=== PATIENT | male | born 1955 | race Caucasian/White ===

== ENCOUNTER 2016-09-06 13:29 | Inpatient (IN) | payer OTHER ==
[~2016-09-06] VITALS: Ht 167.6 cm; Wt 59.0 kg
[2016-09-06 13:42] VITALS: BP 141/76
[2016-09-06 13:46] LABS: ARTERIAL ABE -5.2 MMOL/L (-2.4-+2.3); ARTERIAL TCO2 23.8 MMOL/L (23-27)
[2016-09-06 13:47] LABS: ALLEN'S TEST PATIENT UNABLE; OXYGEN 35% V-MASK
--- NOTE | 2016-09-06 13:49 | Emergency Room Report ---
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 N Clinical Suspician of Infection? N Mental Status: 1 - Regular (Normal Baseline) Sepsis Risk:Low Sepsis Risk Have you (or family members/close friends) recently traveled outside the [place]? N If Yes, where/when: Have you had exposure to infectious disease within the past month? N TB? Other? Specify: Source patient, RN notes reviewed, RN/MD Exam Limitations no limitations Comment This is a 61-year-old gentleman in by ambulance for evaluation of productive cough, subjective fever and shortness of breath, for the past 3 days. Patient describes his cough as productive, yellowish-greenish, denies any hemoptysis, denies any chest pain, any recent travel or exposure to sick contacts. He has a history of chronic obstructive pulmonary disease, his oxygen dependent on 2 LPM, at home. He said he had to increase his oxygen from 2-3 L/m. [facility], and will like to be transferred to his scrum master, Dr. Daniels, at [facility]. He is refusing to be sent to [facility], in case he needs to be transferred. ALLERGIES Coded Allergies: No Known Allergies (09/06/16) Home Medications Reported Medications Albuterol (Albuterol-Hfa Inhaler) 2 PUFF IH TID ALBUTEROL (Albuterol 0.083% Neb) 2.5 MG INH Q6 ASPIRIN (Aspirin) 81 MG PO DAILY ATENOLOL (Atenolol 50MG) 50 MG PO DAILY Budesonide (Pulmicort) 0.25 MG IH BID CETIRIZINE HCL (Cetirizine 10MG) 10 MG PO DAILY Etanercept (Enbrel) 50 MG SQ Q 2 WEEKS Guaifenesin (Chest Congestion Relief) 400 MG PO Q6 IBUPROFEN MICRONIZED (IBUPROFEN 600MG) 600 MG PO Q8HP PRN PAIN LACTOSE-REDUCED FOOD (Ensure Liquid) 250 ML PO BID Omeprazole (Omeprazole 20MG) 20 MG PO DAILY Simvastatin 80 MG PO DAILY Tiotropium [place] (Tiotropium [place] 18MCG/Cap Handihaler) 18 MCG IH DAILY Alendronate Sodium 70 MG PO WEEKLY Sulfasalazine (Azulfidine 500MG Tab) 500 MG PO Calcium Carbonate 500 GM MC History Medical History General Hypertension? Yes Immunization Hx DT/Tetanus Unknown Surgical Hx Previous Surgery?Y Coronary Artery Bypass Social History Smoking Hx Smoker: Former Smoker Tobacco: Yes Type Cigarettes Alcohol Alcohol: No Review of Systems All Other Systems Reviewed and Negative Constitutional chills, diaphoresis, fever, malaise Respiratory cough, shortness of breath, wheezing Physical Exam Vital Signs Vital Signs Date Time Temp Pulse Resp B/P Pulse O2 O2 Flow FiO2 Ox Delivery Rate 09/06 1659 98.2 106 20 150/94 90 4 09/06 1538 106 20 150/94 90 4 09/06 1500 114 20 148/84 97 4 09/06 1437 97 09/06 1342 98.2 110 18 141/76 95 4 General Appearance normal appearance, WD/WN, mild distress Neck normal inspection, non-tender, supple, full range of motion Respiratory Status Yes: trachea midline, chest symmetrical, non tender chest. No: respiratory distress. Lung Sounds anterior: wheezing. posterior: wheezing. bilateral: wheezing. left: wheezing. right: wheezing. 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 No Comment 15:05-patient reevaluated, he appears to remain in distress, with audible wheezing in inspiration and expiration as well. Results obtained, need for inpatient treatment, which in his case will require transfer to [place] [facility]. I advised the emergency cardiovascular operating room nurse to arrange for this transfer. 15:20-Yady Macdonald contacted May at the [facility] in [place], advised of the patient's condition and requested to transfer the patient to their facility, if available beds. May will check the bed availability and call us back. 16:10-May called back, advising that [facility] does not currently have any open inpatient beds. This medication was conveyed to the patient, and advised him that he could be transferred to [facility], which patient refused again. Further arrangements to be undertaken in order to admit patient at our facility, which patient is agreeable with. 16:30-case discussed with Dr. Ahmet Robles, covering for Dr. Johnson, unassigned. Advised Dr. Robles of patient's symptoms, presentation, vital signs, physical examination, lab/electrocardiogram/radiology findings, ED course, etc. Dr. Robles agreeable to place patient in the hospital. Plan is to continue the nebulizers, increase the oxygen supply, and cover him with IV antibiotics for the pneumonia. Care transferred to Dr. Robles at this time. I will write temporary bridge admission orders, per hospital policy. Upon patient's arrival to the floor the unit nurse/[address] Ovalle in order to obtain full inpatient admission orders. Results/Orders Laboratory Tests 09/06/16 1451: ABG pH 7.48 H, ABG pCO2 (Temp Corrct 25.3 L, ABG pO2 (Temp Correct 86.7, ABG HCO3 18.3 L, ABG Total CO2 19.1 L, ABG O2 Sat (Calculated) 96.8, ABG Base Excess -5.3 L, Brian Test ACCEPTABLE 09/06/16 1336: Lactic Acid 2.3 H 09/06/16 1336: Creatine Kinase 133, CK-MB (CK-2) Rel Index 3.3, CK and CKMB Interp 4.4 H, Troponin I < 0.02 09/06/16 1336: Amylase 48, Lipase 100 09/06/16 1336: Sodium 137, Potassium 4.4, Chloride 102, Carbon Dioxide 26, BUN 17, Creatinine 1.1, Estimated Creat Clear 67, Estimated GFR (MDRD) 68, Glucose 134 H, Calcium 8.9, Total Bilirubin 0.6, AST 19, ALT 26, Alkaline Phosphatase 99, Total Protein 7.6, Albumin 3.4, Globulin 4.2 H, Albumin/Globulin Ratio 0.8 L, WBC 14.5 H, RBC 5.70, Hgb 16.8, Hct 50.4, MCV 88.4, RDW 13.3, Plt Count 314, MPV 6.5 L, Gran % 85.6 H, Gran # 12.4 H, Total Counted 100, Lymphocytes % 8.8 L, Monocytes % 3.9, Eosinophils % 1.3, Basophils % 0.4, Neutrophils 75, Band Neutrophils 6, Lymphocytes (Manual) 15, Lymphocytes # 1.3, Monocytes (Manual) 3, Monocytes # 0.6, Eosinophils # 0.2, Eosinophils # (Manual) 1, Basophils # 0.1, Platelet Estimate NORMAL, PUBS MCHC 33.4, MCH 29.5 09/06/16 1320: ABG pH 7.24 *L, ABG pCO2 (Temp Corrct 52.6 H, ABG pO2 (Temp Correct 84.0, ABG HCO3 22.1, ABG Total CO2 23.8, ABG O2 Sat (Calculated) 94, ABG Base Excess -5.2 L, Brian Test PATIENT UNABLE, Blood Gas Comments LEFT RADIAL Current Medication Orders Sig/Leta Start time Last Medication Dose Route Stop Time Status Admin Azithromycin 500 MG DAILY 09/07 899 AC Sodium Chloride 250 ML IV Ceftriaxone Sodium 1 GM DAILY 09/07 0900 AC 09/07 Sodium Chloride 50 ML IV 0950 Methylprednisolone 60 MG Q12 09/06 2100 AC 09/07 Sodium Succinate IV 0941 Albuterol/Ipratropium 3 ML Q6H6 09/06 1800 AC 09/07 INH 1115 Ceftriaxone Sodium 0 .STK-MED ONE 09/06 1545 DC IV Hydrocodone Bit/ 5 MG ONCE ONE 09/06 1545 DC 09/06 Homatropine MBr PO 09/06 1546 1845 Sodium Chloride 50 ML .STK-MED ONE 09/06 1545 DC IV Azithromycin 500 MG ONCE ONE 09/06 1430 DC 09/06 Sodium Chloride 250 ML IV 09/06 1529 1844 Ceftriaxone Sodium 1 GM ONCE ONE 09/06 1430 DC 09/06 Sodium Chloride 50 ML IV 09/06 1459 1549 Albuterol/Ipratropium 3 ML ONCE ONE 09/06 1345 DC INH 09/06 1346 Methylprednisolone 125 MG ONCE ONE 09/06 1345 DC 04 Sodium Succinate IV 09/06 1346 1353 Sodium Chloride 10 ML PRN PRN 09/06 1345 AC IV 09/07 1336 Methylprednisolone 0 .STK-MED ONE 09/06 1341 DC Sodium Succinate .ROUTE Orders Procedure Date/time Status [id number] FAT/LO CHO/[place] 09/06 D Active Decision to admit 09/06 1528 Active LACTIC ACID FOLLOW UP 09/06 1426 Complete CARDIAC ENZYMES 09/06 1422 Complete LIPASE 09/06 1338 Complete AMYLASE 09/06 1338 Complete RT REQUEST DUONEB 09/06 1337 Active CHEST-PORTABLE 09/06 1337 Active IV SALINE LOCK 09/06 1337 Active OXYGEN PER NURSE 09/06 1337 Active URINARY CATHETER INSERT 09/06 1337 Active CULTURE, BLOOD 09/06 1337 Active URINALYSIS/COMPLETE 09/06 1337 Active LACTIC ACID 09/06 1337 Complete CBC WITH AUTO DIFF 09/06 1337 Complete CHEM 12 PROFILE 09/06 1337 Complete DIFFERENTIAL-WBC 09/06 1336 Complete ADMIT PATIENT 09/06 UNK Active PULSE OXIMETRY REQUEST 09/06 UNK Active OXYGEN REQUEST 09/06 UNK Active RT REQUEST DUONEB 09/06 UNK Active VITAL SIGNS 09/06 UNK Active BANKER MASON 09/06 UNK Active POM NURSE RAMON HOSE ORDER 09/06 UNK Active CODE STATUS 09/06 UNK Active PATIENT ACTIVITY ORDER 09/06 UNK Active 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 of ischemic chgs, no ectopy, normal QRS, no EKG for comparison, non-spec. ST/Twave chgs, ST elevation, ST depression, LBBB, RBBB, ectopy, abnormal Q waves XRAY/CT/US XRAY/CT/US XRAY chest XR interpretation by discussed w/radiologist Xray Results normal heart size, no hematoma seen, RLL infiltrate, per radiologist Departure Departure Time of Disposition 1430 Disposition Still a Patient Clinical Impression Primary Impression: COPD exacerbation Secondary Impressions: RLL pneumonia Qualifiers: Pneumonia type: due to unspecified organism Qualified Code: J18.1 - Lobar pneumonia, unspecified organism Condition STABLE ED Critical Care Critical Care No at 1202
--- NOTE | 2016-09-06 13:49 | Emergency Room Report ---
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 N Clinical Suspician of Infection? N Mental Status: 1 - Regular (Normal Baseline) Sepsis Risk:Low Sepsis Risk Have you (or family members/close friends) recently traveled outside the [place]? N If Yes, where/when: Have you had exposure to infectious disease within the past month? N TB? Other? Specify: Source patient, RN notes reviewed, RN/MD Exam Limitations no limitations Comment This is a 61-year-old gentleman in by ambulance for evaluation of productive cough, subjective fever and shortness of breath, for the past 3 days. Patient describes his cough as productive, yellowish-greenish, denies any hemoptysis, denies any chest pain, any recent travel or exposure to sick contacts. He has a history of chronic obstructive pulmonary disease, his oxygen dependent on 2 LPM, at home. He said he had to increase his oxygen from 2-3 L/m. [facility] is [facility], and will like to be transferred to his patient financial services specialist, Dr. Daniels, at [facility]. He is refusing to be sent to [facility], in case he needs to be transferred. ALLERGIES Coded Allergies: No Known Allergies (09/06/16) Home Medications Reported Medications Albuterol (Albuterol-Hfa Inhaler) 2 PUFF IH TID ALBUTEROL (Albuterol 0.083% Neb) 2.5 MG INH Q6 ASPIRIN (Aspirin) 81 MG PO DAILY ATENOLOL (Atenolol 50MG) 50 MG PO DAILY Budesonide (Pulmicort) 0.25 MG IH BID CETIRIZINE HCL (Cetirizine 10MG) 10 MG PO DAILY Etanercept (Enbrel) 50 MG SQ Q 2 WEEKS Guaifenesin (Chest Congestion Relief) 400 MG PO Q6 IBUPROFEN MICRONIZED (IBUPROFEN 600MG) 600 MG PO Q8HP PRN PAIN LACTOSE-REDUCED FOOD (Ensure Liquid) 250 ML PO BID Omeprazole (Omeprazole 20MG) 20 MG PO DAILY Simvastatin 80 MG PO DAILY Tiotropium [place] (Tiotropium [place] 18MCG/Cap Handihaler) 18 MCG IH DAILY Alendronate Sodium 70 MG PO WEEKLY Sulfasalazine (Azulfidine 500MG Tab) 500 MG PO Calcium Carbonate 500 GM MC History Medical History General Hypertension? Yes Immunization Hx DT/Tetanus Unknown Surgical Hx Previous Surgery?Y Coronary Artery Bypass Social History Smoking Hx Smoker: Former Smoker Tobacco: Yes Type Cigarettes Alcohol Alcohol: No Review of Systems All Other Systems Reviewed and Negative Constitutional chills, diaphoresis, fever, malaise Respiratory cough, shortness of breath, wheezing Physical Exam Vital Signs Vital Signs Date Time Temp Pulse Resp B/P Pulse O2 O2 Flow FiO2 Ox Delivery Rate 09/06 1659 98.2 106 20 150/94 90 4 09/06 1538 106 20 150/94 90 4 09/06 1500 114 20 148/84 97 4 09/06 1437 97 09/06 1342 98.2 110 18 141/76 95 4 General Appearance normal appearance, WD/WN, mild distress Neck normal inspection, non-tender, supple, full range of motion Respiratory Status Yes: trachea midline, chest symmetrical, non tender chest. No: respiratory distress. Lung Sounds anterior: wheezing. posterior: wheezing. bilateral: wheezing. left: wheezing. right: wheezing. 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 No Comment 15:05-patient reevaluated, he appears to remain in distress, with audible wheezing in inspiration and expiration as well. Results obtained, need for inpatient treatment, which in his case will require transfer to [place] [facility]. I advised the emergency room cooler installer to arrange for this transfer. 15:20-Yady Macdonald contacted May at the [facility] in [place], advised of the patient's condition and requested to transfer the patient to their facility, if available beds. May will check the bed availability and call us back. 16:10-May called back, advising that [facility] does not currently have any open inpatient beds. This medication was conveyed to the patient, and advised him that he could be transferred to [facility], which patient refused again. Further arrangements to be undertaken in order to admit patient at our facility, which patient is agreeable with. 16:30-case discussed with Dr. Ahmet Robles, covering for Dr. Johnson, unassigned. Advised Dr. Robles of patient's symptoms, presentation, vital signs, physical examination, lab/electrocardiogram/radiology findings, ED course, etc. Dr. Robles agreeable to place patient in the hospital. Plan is to continue the nebulizers, increase the oxygen supply, and cover him with IV antibiotics for the pneumonia. Care transferred to Dr. Robles at this time. I will write temporary bridge admission orders, per hospital policy. Upon patient's arrival to the floor the unit nurse/[address] Ovalle in order to obtain full inpatient admission orders. Results/Orders Laboratory Tests 09/06/16 1451: ABG pH 7.48 H, ABG pCO2 (Temp Corrct 25.3 L, ABG pO2 (Temp Correct 86.7, ABG HCO3 18.3 L, ABG Total CO2 19.1 L, ABG O2 Sat (Calculated) 96.8, ABG Base Excess -5.3 L, Brian Test ACCEPTABLE 09/06/16 1336: Lactic Acid 2.3 H 09/06/16 1336: Creatine Kinase 133, CK-MB (CK-2) Rel Index 3.3, CK and CKMB Interp 4.4 H, Troponin I < 0.02 09/06/16 1336: Amylase 48, Lipase 100 09/06/16 1336: Sodium 137, Potassium 4.4, Chloride 102, Carbon Dioxide 26, BUN 17, Creatinine 1.1, Estimated Creat Clear 67, Estimated GFR (MDRD) 68, Glucose 134 H, Calcium 8.9, Total Bilirubin 0.6, AST 19, ALT 26, Alkaline Phosphatase 99, Total Protein 7.6, Albumin 3.4, Globulin 4.2 H, Albumin/Globulin Ratio 0.8 L, WBC 14.5 H, RBC 5.70, Hgb 16.8, Hct 50.4, MCV 88.4, RDW 13.3, Plt Count 314, MPV 6.5 L, Gran % 85.6 H, Gran # 12.4 H, Total Counted 100, Lymphocytes % 8.8 L, Monocytes % 3.9, Eosinophils % 1.3, Basophils % 0.4, Neutrophils 75, Band Neutrophils 6, Lymphocytes (Manual) 15, Lymphocytes # 1.3, Monocytes (Manual) 3, Monocytes # 0.6, Eosinophils # 0.2, Eosinophils # (Manual) 1, Basophils # 0.1, Platelet Estimate NORMAL, PUBS MCHC 33.4, MCH 29.5 09/06/16 1320: ABG pH 7.24 *L, ABG pCO2 (Temp Corrct 52.6 H, ABG pO2 (Temp Correct 84.0, ABG HCO3 22.1, ABG Total CO2 23.8, ABG O2 Sat (Calculated) 94, ABG Base Excess -5.2 L, Brian Test PATIENT UNABLE, Blood Gas Comments LEFT RADIAL Current Medication Orders Sig/Leta Start time Last Medication Dose Route Stop Time Status Admin Azithromycin 500 MG DAILY 09/07 899 AC Sodium Chloride 250 ML IV Ceftriaxone Sodium 1 GM DAILY 09/07 0900 AC 09/07 Sodium Chloride 50 ML IV 0950 Methylprednisolone 60 MG Q12 09/06 2100 AC 09/07 Sodium Succinate IV 0941 Albuterol/Ipratropium 3 ML Q6H6 09/06 1800 AC 09/07 INH 1115 Ceftriaxone Sodium 0 .STK-MED ONE 09/06 1545 DC IV Hydrocodone Bit/ 5 MG ONCE ONE 09/06 1545 DC 09/06 Homatropine MBr PO 09/06 1546 1845 Sodium Chloride 50 ML .STK-MED ONE 09/06 1545 DC IV Azithromycin 500 MG ONCE ONE 09/06 1430 DC 09/06 Sodium Chloride 250 ML IV 09/06 1529 1844 Ceftriaxone Sodium 1 GM ONCE ONE 09/06 1430 DC 09/06 Sodium Chloride 50 ML IV 09/06 1459 1549 Albuterol/Ipratropium 3 ML ONCE ONE 09/06 1345 DC INH 09/06 1346 Methylprednisolone 125 MG ONCE ONE 09/06 1345 DC 04 Sodium Succinate IV 09/06 1346 1353 Sodium Chloride 10 ML PRN PRN 09/06 1345 AC IV 09/07 1336 Methylprednisolone 0 .STK-MED ONE 09/06 1341 DC Sodium Succinate .ROUTE Orders Procedure Date/time Status [id number] FAT/LO CHO/[place] 09/06 D Active Decision to admit 09/06 1528 Active LACTIC ACID FOLLOW UP 09/06 1426 Complete CARDIAC ENZYMES 09/06 1422 Complete LIPASE 09/06 1338 Complete AMYLASE 09/06 1338 Complete RT REQUEST DUONEB 09/06 1337 Active CHEST-PORTABLE 09/06 1337 Active IV SALINE LOCK 09/06 1337 Active OXYGEN PER NURSE 09/06 1337 Active URINARY CATHETER INSERT 09/06 1337 Active CULTURE, BLOOD 09/06 1337 Active URINALYSIS/COMPLETE 09/06 1337 Active LACTIC ACID 09/06 1337 Complete CBC WITH AUTO DIFF 09/06 1337 Complete CHEM 12 PROFILE 09/06 1337 Complete DIFFERENTIAL-WBC 09/06 1336 Complete ADMIT PATIENT 09/06 UNK Active PULSE OXIMETRY REQUEST 09/06 UNK Active OXYGEN REQUEST 09/06 UNK Active RT REQUEST DUONEB 09/06 UNK Active VITAL SIGNS 09/06 UNK Active MIDDLEWARE ADMINISTRATOR 09/06 UNK Active POM NURSE RAMON HOSE ORDER 09/06 UNK Active CODE STATUS 09/06 UNK Active PATIENT ACTIVITY ORDER 09/06 UNK Active 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 of ischemic chgs, no ectopy, normal QRS, no EKG for comparison, non-spec. ST/Twave chgs, ST elevation, ST depression, LBBB, RBBB, ectopy, abnormal Q waves XRAY/CT/US XRAY/CT/US XRAY chest XR interpretation by discussed w/radiologist Xray Results normal heart size, no hematoma seen, RLL infiltrate, per radiologist Departure Departure Time of Disposition 1430 Disposition Still a Patient Clinical Impression Primary Impression: COPD exacerbation Secondary Impressions: RLL pneumonia Qualifiers: Pneumonia type: due to unspecified organism Qualified Code: J18.1 - Lobar pneumonia, unspecified organism Condition STABLE ED Critical Care Critical Care No at 1202
[2016-09-06 13:50] LABS: HEMOGLOBIN 16.8 g/dL (14.1-18.0); LYMPH # 1.3 K/mm3 (0.7-4.5); LYMPH % 8.8 % (10-50)
[2016-09-06 14:11] LABS: NEUTROPHILS 75 % (42-76)
[2016-09-06] MEDS ORDERED: ALBUTEROL-200 PUFFS/ IH (14:22)
[2016-09-06] MEDS ORDERED: ASPIRIN 81MG TA81 MG PO (14:24)
[2016-09-06] MEDS ORDERED: ALBUTEROL2.5 MG/NEB INH (14:24)
[2016-09-06] MEDS ORDERED: ATENOLOL50 MG PO (14:25)
[2016-09-06] MEDS ORDERED: BUDESONIDE0.25 MG/2 IH (14:26)
[2016-09-06] MEDS ORDERED: CETIRIZINE HCL10 MG PO ×2 (14:26→20:54)
[2016-09-06] MEDS ORDERED: ENBREL50 MG/1 ML SQ (14:29)
[2016-09-06] MEDS ORDERED: CHEST CONGESTI400 MG PO (14:31)
[2016-09-06] MEDS ORDERED: IBUPROFEN 600M600 MG PO (14:31)
[2016-09-06] MEDS ORDERED: [UNRECOGNIZED DRUG - OTHER] PO (14:32)
[2016-09-06] MEDS ORDERED: OMEPRAZOLE20 MG PO (14:33)
[2016-09-06] MEDS ORDERED: SIMVASTATIN80 MG PO (14:33)
[2016-09-06] MEDS ORDERED: [UNRECOGNIZED DRUG - REMARK] PO (14:35)
[2016-09-06] MEDS ORDERED: TIOTROPIUM BRO18 MCG IH (14:36)
[2016-09-06 14:56] LABS: ARTERIAL PO2 86.7 MMHG (80-100)
[2016-09-06 14:57] LABS: ALLEN'S TEST ACCEPTABLE; ARTERIAL ABE -5.3 MMOL/L (-2.4-+2.3); ARTERIAL TCO2 19.1 MMOL/L (23-27)
--- NOTE | 2016-09-06 16:03 | PHARMACY CLINIC NOTE ---
Patient Demographics Patient Demographics Admission date: 09/06/16 Date: 09/06/16 Time: 1603 Allergies Coded Allergies: No Known Allergies (09/06/16) HEIGHT- FT: 5 IN: 6.00 K.400 VTE General Information Labs: Laboratory Tests 09/06 1336 Hematology Hgb (14.1 - 18.0 g/dL) 16.8 Hct (42.0 - 52.0 %) 50.4 Plt Count (142 - 424 K/mm3) 314 Disclaimer The following section includes nursing documentation that has been pulled in for pharmacy review. VTE prophylaxis [id number] [id number] VTE prophylaxis ordered? Yes Type of prophylaxis/treatment: RAMON at 1609
[2016-09-06 18:50] VITALS: BP 147/101
[2016-09-06] MEDS ORDERED: ALENDRONATE SOD70 M1 PO (20:53)
[2016-09-06] MEDS ORDERED: AZULFIDINE 500500 MG PO (20:58)
[2016-09-06 20:59] VITALS: BP 147/101
[2016-09-06] MEDS ORDERED: CALCIUM CARBONAT1 GM MC (21:00)
[2016-09-07] VITALS (9 sets, daily range): BP systolic 109–154; BP diastolic 68–97
--- NOTE | 2016-09-07 09:20 | HISTORY AND PHYSICAL REPORT ---
Demographics: Admit date: 09/06/16 Chief complaint: sob PRIMARY DIAGNOSIS: PNEUMONIA Allergies: Coded Allergies: No Known Allergies (09/06/16) History of present illness: History of present illness: this wm who has known copd with prod cough and dec po intake with sob and was seen in the ed with dec sat and abn cxr - pt was seen in the ed and was dx with cap and copd and [facility] and was admitted to [facility]- Past medical history: Family HX Family Hx Insignificant Yes Immunization HX DT/Tetanus Unknown Pneumonia Unknown TB Test in last year No General Hypertension? Yes Past Surgical HX Previous Surgery?Y Coronary Artery Bypass Current home meds: Reported Medications Albuterol (Albuterol-Hfa Inhaler) 2 PUFF IH TID ALBUTEROL (Albuterol 0.083% Neb) 2.5 MG INH Q6 ASPIRIN (Aspirin) 81 MG PO DAILY ATENOLOL (Atenolol 50MG) 50 MG PO DAILY Budesonide (Pulmicort) 0.25 MG IH BID CETIRIZINE HCL (Cetirizine 10MG) 10 MG PO DAILY Etanercept (Enbrel) 50 MG SQ Q 2 WEEKS Guaifenesin (Chest Congestion Relief) 400 MG PO Q6 IBUPROFEN MICRONIZED (IBUPROFEN 600MG) 600 MG PO Q8HP PRN PAIN LACTOSE-REDUCED FOOD (Ensure Liquid) 250 ML PO BID Omeprazole (Omeprazole 20MG) 20 MG PO DAILY Simvastatin 80 MG PO DAILY Sulfasalazine (Azulfidine) 500 MG PO BID Tiotropium Cecil (Tiotropium Cecil 18MCG/Cap Handihaler) 18 MCG IH DAILY Alendronate Sodium 70 MG PO WEEKLY CETIRIZINE HCL (Cetirizine 10MG) 10 MG PO DAILY Sulfasalazine (Azulfidine 500MG Tab) 500 MG PO Calcium Carbonate 500 GM MC Social Hx: Smoking HX Tobacco Yes Type Cigarettes Alcohol Alcohol: No Hx of Drug Use Drug Use? No Patien't marital status is Patient's support system is good Review of systems: Constitutional see HPI, weakness. Eyes No: drainage. Ears, Nose, Mouth, Throat No ear discharge, No epistaxis, No throat pain Respiratory cough. No: shortness of breath, wheezing. Cardiovascular No chest pain, No palpitations, No syncope Gastrointestinal/Abdominal poor appetite, poor fluid intake Genitourinary No: dysuria, frequency, hesitancy. Musculoskeletal No: back pain, joint pain, neck pain. Skin No: rash. Neurological No: numbness, tingling, seizure disorder. Psychiatric Yes: no symptoms reported, anxious. Exam: Lab data for last 24 hours: Laboratory Tests 09/07/16 0835: Sodium 136, Potassium 4.3, Chloride 101, Carbon Dioxide 26, BUN 25 H, Creatinine 1.1, Estimated Creat Clear 67, Estimated GFR (MDRD) 68, Glucose 151 H, Calcium 8.6, Total Bilirubin 0.6, AST 17, ALT 24, Alkaline Phosphatase 81, Total Protein 6.7, Albumin 2.9 L, Globulin 3.8 H, Albumin/Globulin Ratio 0.8 L 09/06/16 1736: Lactic Acid 2.1 H 09/06/16 1451: ABG pH 7.48 H, ABG pCO2 (Temp Corrct 25.3 L, ABG pO2 (Temp Correct 86.7, ABG HCO3 18.3 L, ABG Total CO2 19.1 L, ABG O2 Sat (Calculated) 96.8, ABG Base Excess -5.3 L, Brian Test ACCEPTABLE 09/06/16 1336: Lactic Acid 2.3 H 09/06/16 1336: Creatine Kinase 133, CK-MB (CK-2) Rel Index 3.3, CK and CKMB Interp 4.4 H, Troponin I < 0.02 09/06/16 1336: Amylase 48, Lipase 100 09/06/16 1336: Sodium 137, Potassium 4.4, Chloride 102, Carbon Dioxide 26, BUN 17, Creatinine 1.1, Estimated Creat Clear 67, Estimated GFR (MDRD) 68, Glucose 134 H, Calcium 8.9, Total Bilirubin 0.6, AST 19, ALT 26, Alkaline Phosphatase 99, Total Protein 7.6, Albumin 3.4, Globulin 4.2 H, Albumin/Globulin Ratio 0.8 L, WBC 14.5 H, RBC 5.70, Hgb 16.8, Hct 50.4, MCV 88.4, RDW 13.3, Plt Count 314, MPV 6.5 L, Gran % 85.6 H, Gran # 12.4 H, Total Counted 100, Lymphocytes % 8.8 L, Monocytes % 3.9, Eosinophils % 1.3, Basophils % 0.4, Neutrophils 75, Band Neutrophils 6, Lymphocytes (Manual) 15, Lymphocytes # 1.3, Monocytes (Manual) 3, Monocytes # 0.6, Eosinophils # 0.2, Eosinophils # (Manual) 1, Basophils # 0.1, Platelet Estimate NORMAL, PUBS MCHC 33.4, MCH 29.5 09/06/16 1320: ABG pH 7.24 *L, ABG pCO2 (Temp Corrct 52.6 H, ABG pO2 (Temp Correct 84.0, ABG HCO3 22.1, ABG Total CO2 23.8, ABG O2 Sat (Calculated) 94, ABG Base Excess -5.2 L, Brian Test PATIENT UNABLE, Blood Gas Comments LEFT RADIAL Microbiology 09/07 14 SPUTUM: Sputum Culture - RES 09/07 14 SPUTUM: Gram Stain - RES 09/07 1335 BLOOD: Anaerobic Blood Culture - RECD 09/07 1335 BLOOD: Aerobic Blood Culture - RECD 09/07 1335 BLOOD: Anaerobic Blood Culture - RECD 09/07 1335 BLOOD: Aerobic Blood Culture - RECD Admission vital signs: 1ST Vital Signs Result Date Time Pulse Ox 95 09/06 1342 B/P 141/76 09/06 1342 O2 Flow Rate 4 09/06 1342 Temp 98.2 04/ 1342 Pulse 110 04/ 1342 Resp 18 09/06 1342 O2 Delivery OXYGEN 09/06 1850 Exam General appearance: alert Eyes: anicteric, PERRLA ENT: dry mucous membranes Neck: no JVD Cardiovascular: regular rate & rhythm, murmur Respiratory: diminished breath sounds, rhonchi, wheezing ABD: soft Genitourinary: no hematuria Extremities: moves all Musculoskeletal: equal muscle strength Skin: dry Neuro: alert, commercial director II-XII nml as tested Additional information: pt with cap/bronchitis with copd Plan: Problem List 1. COPD exacerbation 2. RLL pneumonia Plan: will give resp rx and steroids and iv abx at 0920
[2016-09-07 09:31] LABS: LYMPH # 0.4 K/mm3 (0.7-4.5); LYMPH % 4.6 % (10-50)
[2016-09-07 09:42] LABS: HEMOGLOBIN 15.1 g/dL (14.1-18.0)
--- NOTE | 2016-09-07 13:42 | RADIOLOGY REPORT PS360 ---
CHEST-PORTABLE Ordering Physician: Edwin Acosta MD Patient Age: 61 years: Male HISTORY: SOA TECHNIQUE: AP portable chest FINDINGS COPD with hyperexpansion at the upper lung saenz is a slight coarsening markings at the mid and lower chest. No prior studies available for comparison. Costochondral calcification bilaterally and to the densities at the medial lower chest particularly on right. Also there seems to be some generous evident vascular tortuous vascular structures standing from the hilar regions bilaterally. Slight accentuation markings right infrahilar region. Question minimal wispy infiltrate in discussed with ER doctor,. However likely suspect may merely reflect chronic changes on final review Right nohemy is upper normal prominence most likely stable but would encourage comparison outside studies if available, or or follow-up PA and lateral chest may be of particular if symptoms persist There is linear scarring towards the left lung base heart is normal in size previous sternotomy CABG with numerous clips along the left aspect of the mediastinum & left heart border heart appear to be related to CABG. IMPRESSION: -------- Question/& mildly suspect minimal wispy infiltrate right infrahilar region towards medial right lung base; along with chronic changes here. COPD with chronic changes. Hyperexpansion and apices . Scarring & chronic changes towards lung bases.. . Prior CABG. Heart upper normal size
[2016-09-08] VITALS (8 sets, daily range): BP systolic 123–158; BP diastolic 60–105
--- NOTE | 2016-09-08 18:21 | ACUTE CARE PROGRESS NOTE (QUA) ---
Progress Notes Subjective Date 09/08/16 Time 1819 Note doing better Patient/family reports: feeling better Nursing reports: no complaints Objective Findings Last VS-Temp:98.3 B/P:148/89 Pulse:96 Resp:22 SaO2:93 OXYGEN Last weight lbs:130 oz:0 K.967 Method:Floor Scales Exam General appearance: alert Eyes: anicteric ENT: dry mucous membranes Neck: no JVD Cardiovascular: regular rate & rhythm, murmur Respiratory: diminished breath sounds ABD: soft Genitourinary: no hematuria Extremities: moves all Musculoskeletal: equal muscle strength Skin: dry Neuro: alert, syrup mixer helper II-XII nml as tested Reviewed: allergies, medications, vital signs, lab results Assessment/Plan Problem List 1. COPD exacerbation 2. RLL pneumonia Patient condition Stable Plan: continue current care This inpt stay is expected to cross 2 MNs from start of care Yes Comments: better but still very sob but improved at 1823
--- NOTE | 2016-09-08 18:21 | ACUTE CARE PROGRESS NOTE (QUA) ---
Progress Notes Subjective Date 09/08/16 Time 1819 Note doing better Patient/family reports: feeling better Nursing reports: no complaints Objective Findings Last VS-Temp:98.3 B/P:148/89 Pulse:96 Resp:22 SaO2:93 OXYGEN Last weight lbs:130 oz:0 K.967 Method:Floor Scales Exam General appearance: alert Eyes: anicteric ENT: dry mucous membranes Neck: no JVD Cardiovascular: regular rate & rhythm, murmur Respiratory: diminished breath sounds ABD: soft Genitourinary: no hematuria Extremities: moves all Musculoskeletal: equal muscle strength Skin: dry Neuro: alert, front end alignment specialist II-XII nml as tested Reviewed: allergies, medications, vital signs, lab results Assessment/Plan Problem List 1. COPD exacerbation 2. RLL pneumonia Patient condition Stable Plan: continue current care This inpt stay is expected to cross 2 MNs from start of care Yes Comments: better but still very sob but improved at 1829
[2016-09-09 04:37] VITALS: BP 145/88
[2016-09-09 08:00] VITALS: BP 140/81
[2016-09-09 09:33] LABS: HEMOGLOBIN 15.6 g/dL (14.1-18.0); LYMPH # 0.6 K/mm3 (0.7-4.5); LYMPH % 6.8 % (10-50)
--- NOTE | 2016-09-09 10:06 | ACUTE CARE PROGRESS NOTE (QUA) ---
Progress Notes Subjective Date 09/09/16 Time 1004 Note doing better Patient/family reports: feeling better Nursing reports: no complaints Objective Findings Last VS-Temp:97.6 B/P:145/88 Pulse:77 Resp:22 SaO2:97 OXYGEN Last weight lbs:130 oz:0 K.967 Method:Floor Scales Exam General appearance: alert Eyes: anicteric, PERRLA ENT: dry mucous membranes Neck: no JVD Cardiovascular: regular rate & rhythm, murmur Respiratory: no respiratory distress, rhonchi ABD: soft Genitourinary: no hematuria Extremities: moves all Musculoskeletal: equal muscle strength Skin: dry Neuro: alert, government auditor II-XII nml as tested Reviewed: allergies, medications, vital signs, lab results, radiology report Assessment/Plan Problem List 1. COPD exacerbation 2. RLL pneumonia Patient condition Improving Plan: initiate discharge plan This inpt stay is expected to cross 2 MNs from start of care Yes Comments: will d/c today and he will follow up at [place] Antibiotic Stewardship (2) Current Culture Results Microbiology 09/07 14 SPUTUM: Sputum Culture - RES 09/07 14 SPUTUM: Gram Stain - RES 09/07 1335 BLOOD: Anaerobic Blood Culture - RES 09/07 1335 BLOOD: Aerobic Blood Culture - RES Infxn that will respond? Yes Right drug,dose,and route? Yes More targeted antbx? No How long atbx needed? 5 Comment: sputum c/s pending at 1006
--- NOTE | 2016-09-09 10:06 | ACUTE CARE PROGRESS NOTE (QUA) ---
Progress Notes Subjective Date 09/09/16 Time 1004 Note doing better Patient/family reports: feeling better Nursing reports: no complaints Objective Findings Last VS-Temp:97.6 B/P:145/88 Pulse:77 Resp:22 SaO2:97 OXYGEN Last weight lbs:130 oz:0 K.967 Method:Floor Scales Exam General appearance: alert Eyes: anicteric, PERRLA ENT: dry mucous membranes Neck: no JVD Cardiovascular: regular rate & rhythm, murmur Respiratory: no respiratory distress, rhonchi ABD: soft Genitourinary: no hematuria Extremities: moves all Musculoskeletal: equal muscle strength Skin: dry Neuro: alert, business department chair II-XII nml as tested Reviewed: allergies, medications, vital signs, lab results, radiology report Assessment/Plan Problem List 1. COPD exacerbation 2. RLL pneumonia Patient condition Improving Plan: initiate discharge plan This inpt stay is expected to cross 2 MNs from start of care Yes Comments: will d/c today and he will follow up [place] Antibiotic Stewardship (2) Current Culture Results Microbiology 09/07 14 SPUTUM: Sputum Culture - RES 09/07 14 SPUTUM: Gram Stain - RES 09/07 1335 BLOOD: Anaerobic Blood Culture - RES 09/07 1335 BLOOD: Aerobic Blood Culture - RES Infxn that will respond? Yes Right drug,dose,and route? Yes More targeted antbx? No How long atbx needed? 5 Comment: sputum c/s pending at 1006
[2016-09-09] MEDS ORDERED: PREDNISONE 20MG20 MG PO (10:11)
[2016-09-09] MEDS ORDERED: LEVAQUIN500 MG PO (10:11)
[2016-09-09] MEDS ORDERED: TESSALON PERLE100 M1 PO (10:11)
--- NOTE | 2016-09-09 10:18 | DISCHARGE SUMMARY STANDARD ---
Demographics Admit date: 09/06/16 Discharge date: 09/09/16 History of present illness History of present illness this wm who has known copd with prod cough and dec po intake with sob and was seen in the ed with dec sat and abn cxr - pt was seen in the ed and was dx with cap and copd and no [facility] bed available and was [facility] to [facility]- Hospital Course Hospital Course: pt with slow improvment on ivf and abx with resp treatments and steroids and was able to maintain sat on his o2 baseline and was able to eat and drink with ambulation in his room - his labs improved and has sputum c/s pending Discharge diagnoses Problem List 1. COPD exacerbation 2. RLL pneumonia Medications Medications: Discharge meds are as noted. Follow up Follow up in office in: 7 DAYS with: Ascencion Robles MD Comment: will d/c on meds levaquin, steroids and continue home meds and contact [place] about sputum and follow up at 1012
--- NOTE | 2016-09-09 10:18 | DISCHARGE SUMMARY STANDARD ---
Demographics Admit date: 09/06/16 Discharge date: 09/09/16 History of present illness History of present illness this wm who has known copd with prod cough and dec po intake with sob and was seen in the ed with dec sat and abn cxr - pt was seen in the ed and was dx with cap and copd and no [facility] bed available and was admitted to [facility]- Hospital Course Hospital Course: pt with slow improvment on ivf and abx with resp treatments and steroids and was able to maintain sat on his o2 baseline and was able to eat and drink with ambulation in his room - his labs improved and has sputum c/s pending Discharge diagnoses Problem List 1. COPD exacerbation 2. RLL pneumonia Medications Medications: Discharge meds are as noted. Follow up Follow up in office in: 7 DAYS with: Ascencion Robles MD Comment: will d/c on meds levaquin, steroids and continue home meds and contact [place] about sputum and follow up at 1017
[2016-09-09 14:03] VITALS: BP 145/88
[2016-09-09 14:06] LABS: NEUTROPHILS 82 % (42-76)
== END 2016-09-09 13:32 | disposition home or self-care (01) | DRG 194 ==
LOC: ER 13:29 → 2ND 15:22 → ER 15:22 → 2ND 15:41 → ICU 16:11 → 2ND 16:11 → ICU 17:01 → 2ND 09-07 16:05
PROVIDERS: Emergency Medicine
DX: J18.9 Pneumonia, unspecified organism (principal); J44.1 Chronic obstructive pulmonary disease with (acute) exacerbation; I10 Essential (primary) hypertension; Z72.0 Tobacco use; Z95.1 Presence of aortocoronary bypass graft
CPT/HCPCS: J0456